=== PATIENT | female | born 1965 | race Caucasian/White ===

== ENCOUNTER 2016-07-11 16:18 | Inpatient (IN) ==
--- NOTE | 2016-07-11 16:48 | Emergency Department Note ---
Disposition Clinical Impression: Pancreatitis Qualifiers: Chronicity: acute Pancreatitis type: unspecified pancreatitis type Acute pancreatitis complication: no infection or necrosis Qualified Code(s): K85.90 - Acute pancreatitis without necrosis or infection, unspecified Disposition: Admitted As Inpatient Condition: Fair Abdominal Pain HPI - General Chief Complaint: ED Abdominal Pain Stated Complaint: abdominal pain Time Seen by Provider: 07/11/16 16:35 Source: patient, EMS Mode of arrival: EMS Limitations: no limitations Nursing Notes Reviewed: Yes Vital Signs Reviewed: Yes - History of Present Illness HPI Narrative: Patient presents to ED via EMS with complaint of abdominal pain. EMS states the return of her shortness of breath and that patient then complained of chest pain when they arrived. Now she denies chest pain and shortness of breath but states she has a headache and abdominal pain. Pain started last night and has been worsening today. Epigastric in location. She describes as a twisting pain that goes to her back. She rates it 10 out of 10. She reports nausea but no vomiting. She has had soft formed bowel movements without diarrhea. No blood noted in her stools. States she tried Gas-X twice today with no improvement in symptoms. She also complains of a 9 out of 10 stabbing headache in the back of her head. Denies any visual disturbances. No lightheadedness or dizziness. No numbness, tingling or weakness. No fever or chills. She has a history of GERD and is on Prevacid. Only abdominal surgery is hiatal hernia. On arrival here she is nontoxic in appearance, afebrile and hemodynamically stable. Pain Scale: 10 - Related Data Home Medications Medication Instructions Recorded Confirmed Gabapentin [Neurontin] 300 mg PO TID 02/14/15 03/31/16 Loratadine [Claritin] 10 mg PO DAILY 02/14/15 03/31/16 Lansoprazole [Prevacid] 30 mg PO DAILY 02/16/15 03/31/16 Vitamin E 400 unit PO DAILY 02/16/15 03/31/16 Ascorbate Calcium [Vitamin C] 500 mg PO DAILY 02/10/16 03/31/16 Alprazolam [Xanax 0.5 MG Tablet] 0.5 mg PO BID PRN 03/20/16 03/31/16 Bupropion HCl [Wellbutrin Xl] 300 mg PO DAILY 03/20/16 03/31/16 Levothyroxine Sodium 75 mcg PO DAILY 03/20/16 03/31/16 Simvastatin [Zocor] 20 mg PO HS 03/20/16 03/31/16 Citalopram Hydrobromide 40 mg PO DAILY 03/31/16 03/31/16 [Citalopram HBr] Previous Rx's Medication Instructions Recorded Acetaminophen [Tylenol] 1,000 mg PO Q6HR PRN #0 tablet 03/20/16 Allergies Allergy/AdvReac Type Severity Reaction Status Date / Time acetaminophen [From Vicodin] AdvReac Irritable Verified 07/11/16 16:20 diazepam [From Valium] AdvReac Irritable Verified 07/11/16 16:20 duloxetine [From Cymbalta] AdvReac Irritable Verified 07/11/16 16:20 hydrocodone [From Vicodin] AdvReac Irritable Verified 07/11/16 16:20 Constitutional: Denies: fever, chills, weakness, weight change Eyes: Denies: eye pain, eye discharge, vision change ENT ED: Denies: ear pain, throat pain, dental pain, hearing loss, epistaxis, congestion, dysphagia Cardiovascular: Denies: chest pain, palpitations, dyspnea on exertion, edema, syncope Respiratory: Denies: cough, dyspnea, wheezes, hemoptysis, stridor Gastrointestinal: Reports: abdominal pain, nausea. Denies: vomiting, diarrhea, constipation, hematemesis, melena, hematochezia Genitourinary: Denies: dysuria, frequency, hematuria, discharge Musculoskeletal: Denies: back pain, neck pain, arthralgia, myalgia Integumentary: Denies: rash, abrasion, lesions Neurological: Reports: headache. Denies: weakness, numbness, paresthesias, confusion, abnormal gait, vertigo Psychiatric: Denies: anxiety, depression, suicidal thoughts, homicidal thoughts , auditory hallucinations, visual hallucinations Endocrine: Denies: fatigue Hematological/Lymphatic: Denies: easy bleeding, easy bruising Allergic/Immunologic: Denies: facial swelling, urticaria Abdominal Pain PMH - Past Medical History Medical history: Reports: arthritis, GERD, thyroid disease Female Surgical History: Reports: Tonsillectomy, other Psychiatric history: Reports: anxiety, depression - Social History Smoking status: Never smoker Alcohol use: Reports: none Drug use: Reports: none Physical Exam - General Limitations: no limitations General appearance: alert, in distress (moaning in pain) - Head Head exam: atraumatic, normocephalic, normal inspection - Eye Eye exam: Present: normal appearance, PERRL, EOMI - ENT ENT exam: normal exam, normal oropharynx, mucous membranes moist - Neck Neck exam: Present: normal inspection, full ROM, trachea midline - Chest Chest inspection: Present: normal inspection, symmetric chest wall rise - Respiratory Respiratory exam: Present: normal lung sounds bilaterally - Cardiovascular Cardiovascular exam: Present: regular rate, normal rhythm, normal heart sounds - Abdominal Exam Abdominal exam: Present: soft, tenderness, normal bowel sounds. Absent: distention, guarding, rebound, rigidity Abdominal tenderness: Present: RUQ, LUQ, epigastrium - Extremities Exam Extremities exam: Present: normal inspection, full ROM. Absent: tenderness, pedal edema - Back Exam Back exam: Present: normal inspection, full ROM. Absent: tenderness - Neurological Exam Neurological exam: Present: alert, oriented X3 - Psychiatric Psychiatric exam: Present: normal affect, normal mood - Skin Skin exam: Present: warm, dry, intact, normal color Course Course Narrative: Patient presents to the ED complaining of 2 days of worsening epigastric abdominal pain and nausea without vomiting. She has tenderness across it of her abdomen exam is somewhat inconsistent. She is in obvious discomfort. She will be given Zofran, Toradol and Pepcid while labs are obtained for further evaluation. Primary concern would be for gastritis versus pancreatitis or less likely cholecystitis. - Reevaluation(s) Reevaluation #1: Lab work was normal with the exception of significantly elevated AST, ALT and lipase, consistent with pancreatitis. CT scan of the abdomen was obtained which did show pancreatitis without pseudocyst, abscess, cholecystitis or dilated ducts. She had significant improvement in her pain and nausea with treatment in the ED. I informed her of all test results and the need for admission for nothing by mouth status and pain control for her pancreatitis. She is in agreement. I spoke to the hospitalist craft demonstrator, Dr. Christensen, who accepted the patient for admission. She continues to rest comfortably at this time. Vital Signs Temperature 99.1 F 07/11/16 16:21 Pulse Rate 77 07/11/16 16:21 Respiratory Rate 18 07/11/16 16:21 Blood Pressure 106/48 07/11/16 16:21 O2 Sat by Pulse Oximetry 100 07/11/16 16:21 Temperature 99.1 F 07/11/16 16:22 Pulse Rate 71 07/11/16 20:30 Respiratory Rate 18 07/11/16 21:37 Blood Pressure 93/54 07/11/16 21:37 O2 Sat by Pulse Oximetry 98 07/11/16 20:30 Oxygen Delivery Oxygen Delivery Room Air Abdominal Pain - Differential Diagnosis Differential Diagnosis: Likely: abdominal pain non-specific, pancreatitis, other (gastritis, cholecystitis) - Medical Records Medical records reviewed: Yes I reviewed the patient's medical records. - Lab Data Lab results reviewed: Yes I reviewed the patient's lab results. Result diagrams: 07/11/16 17:02 07/11/16 17:02 Lab Results 07/11/16 07/11/16 07/11/16 Range/Units 17:02 17:02 17:40 WBC 8.7 (4.3-11.1) K/mcL RBC 4.93 (3.82-4.97) M/mcL Hgb 15.1 (11.5-15.4) g/dL Hct 42.6 (35.3-44.9) % MCV 86.4 (83.0-100.0) fL MCH 30.6 (28.0-33.3) pg MCHC 35.4 (31.6-35.5) g/dL RDW 11.6 (11.5-14.5) % Plt Count 144 (140-400) K/mcL MPV 8.7 L (9.4-12.4) fL Immature Gran % 0.5 (0-4) % Seg Neutrophils % 90.0 % Lymphocytes % 7.8 % Monocytes % 1.6 % Eosinophils % 0.0 % Basophils % 0.1 % Neutrophils # 7.8 (1.6-8.9) K/mcL Lymphocytes # 0.7 (0.6-4.6) K/mcL Monocytes # 0.1 (0.0-1.3) K/mcL Eosinophils # 0.0 (0.0-0.6) K/mcL Basophils # 0.0 (0.0-0.2) K/mcL Sodium 140 (136-145) mEq/L Potassium 3.5 (3.5-4.5) mEq/L Chloride 104 (98-109) mEq/L Carbon Dioxide 20 (19-29) mEq/L BUN 13 (7-20) mg/dL Creatinine 0.97 (0.57-1.11) mg/dL Est GFR ( Amer) > 60 (> 60) Est GFR (Non-Af Amer) > 60 (> 60) BUN/Creatinine Ratio 13 (6-26) Glucose 116 H (70-99) mg/dL Calculated Osmolality 291 (280-300) Calcium 9.9 (8.6-10.8) mg/dL Total Bilirubin 1.7 H (0.2-1.2) mg/dL AST 378 H (5-34) Units/L ALT 161 H (0-55) Units/L Alkaline Phosphatase 112 (38-126) Units/L Serum Total Protein 6.6 (6.0-8.3) g/dL Albumin 3.8 (3.5-5.0) g/dL Globulin 2.8 (2.4-3.5) g/dL Albumin/Globulin Ratio 1.4 (1.1-2.2) Lipase 7290 H (8-78) Units/L Urine Color Yellow (Yellow) Urine Clarity Clear (Clear) Urine pH 7.5 (5.0-8.0) pH Units Ur Specific [place] 1.015 (1.010-1.025) Urine Protein Negative (Neg-Trace) mg/dL Urine Glucose (UA) Normal (Normal) mg/dL Urine Ketones 15 H (Negative) mg/dL Urine Blood Negative (Negative) Urine Nitrite Negative (Negative) Urine Bilirubin Negative (Negative) Urine Urobilinogen 2.0 H (Normal) mg/dL Ur Leukocyte Esterase Negative (Negative) Ur Culture Indicated? NO (NO) - Radiology Data Radiology results reviewed: Yes I reviewed the patient's radiology results. ITS Impressions Abdomen/Pelvis CT 07/11/16 18:49 IMPRESSION: Acute pancreatitis. No evidence of pancreatic duct obstruction or pancreatic necrosis. There is no pseudocyst formation D/ / Caesar Mishra MD / Caesar Mishra MD Interpreting Provider: Caesar Mishra MD - EKG Data EKG attestation: Yes I reviewed and interpreted this EKG. EKG shows normal: sinus rhythm Rate: normal Rhythm: NSR [place]/QRS: normal Interpretation: no acute changes, nonspecific ST-T wave changes
[2016-07-11] MEDS ORDERED: Ketorolac 30 MG/ML VIAL IV ONE (16:49)
[2016-07-11] MEDS ORDERED: Ondansetron 4 MG/2 ML VIAL IV ONE (16:49)
[2016-07-11] MEDS ORDERED: Famotidine 20 MG/2 ML VIAL IVP ONE (16:49)
[2016-07-11] MEDS ORDERED: 0.9 % Sodium Chloride 1,000 ML IVC SCH (17:00)
[2016-07-11 17:13] LABS: Basophils % 0.1 %; Hematocrit 42.6 % (35.3-44.9); Hemoglobin 15.1 g/dL (11.5-15.4); Immature Granulocytes % 0.5 % (0-4); Lymphocytes # 0.7 K/mcL (0.6-4.6); Lymphocytes % 7.8 %; Mean Corpuscular HGB Conc 35.4 g/dL (31.6-35.5); Mean Corpuscular Hemoglobin 30.6 pg (28.0-33.3); Mean Corpuscular Volume 86.4 fL (83.0-100.0); Mean Platelet Volume 8.7 fL (9.4-12.4); Monocytes # 0.1 K/mcL (0.0-1.3); Monocytes % 1.6 %; Neutrophils # 7.8 K/mcL (1.6-8.9); Platelet Count 144 K/mcL (140-400); Red Blood Count 4.93 M/mcL (3.82-4.97); Red Cell Distribution Width 11.6 % (11.5-14.5)
[2016-07-11 17:26] LABS: Alanine Aminotransferase 161 Units/L (0-55); Albumin 3.8 g/dL (3.5-5.0); Albumin/Globulin Ratio 1.4 (1.1-2.2); Alkaline Phosphatase 112 Units/L (38-126); Aspartate Amino Transferase 378 Units/L (5-34); BUN/Creatinine Ratio 13 (6-26); Bilirubin,Total 1.7 mg/dL (0.2-1.2); Blood Urea Nitrogen 13 mg/dL (7-20); Calcium 9.9 mg/dL (8.6-10.8); Carbon Dioxide 20 mEq/L (19-29); Chloride 104 mEq/L (98-109); Globulin 2.8 g/dL (2.4-3.5); Glucose 116 mg/dL (70-99); Osmolality,Calculated 291 (280-300); Potassium 3.5 mEq/L (3.5-4.5); Sodium 140 mEq/L (136-145); Total Protein 6.6 g/dL (6.0-8.3); eGFR For African Americans > 60 (> 60); eGFR For Non-African Americans > 60 (> 60)
[2016-07-11 17:46] LABS: Lipase 7290 Units/L (8-78)
[2016-07-11 17:58] LABS: Bilirubin,Urine Negative (Negative); Blood,Urine Negative (Negative); Clarity,Urine Clear (Clear); Color,Urine Yellow (Yellow); Glucose,Urine (UA) Normal (Normal); Ketones,Urine 15 mg/dL (Negative); Leukocyte Esterase,Urine Negative (Negative); Nitrite,Urine Negative (Negative); PH,Urine 7.5 pH Units (5.0-8.0); Protein,Urine Negative (Neg-Trace); Specific Gravity,Urine 1.015 (1.010-1.025)
[2016-07-11] MEDS ORDERED: Ondansetron 4 MG/2 ML VIAL IVP PRN (21:06)
[2016-07-11] MEDS ORDERED: *HR* Morphine 2 MG/ML SYRINGE IVP PRN (21:06)
[2016-07-11] MEDS ORDERED: Naloxone 0.4 MG/ML INJ IVP PRN ×2 (21:06→21:36)
[2016-07-11] MEDS: *HR* Morphine 2 MG/ML SYRINGE IVP PRN (22:42)
[2016-07-12] MEDS: 0.9 % Sodium Chloride 1,000 ML IVC SCH ×2 (01:19→06:45)
[2016-07-12] MEDS: Ondansetron 4 MG/2 ML VIAL IVP PRN ×2 (06:31→18:09)
[2016-07-12] MEDS: *HR* Morphine 2 MG/ML SYRINGE IVP PRN ×2 (07:55→18:28)
--- NOTE | 2016-07-12 14:54 | Electrocardiograph Report ---
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
--- NOTE | 2016-07-12 14:58 | Internal Med History&Physical ---
Date of Encounter: 07/12/16 Time of Encounter: 14:15 Assessment and Plan (1) Pancreatitis Current visit: Yes Status: Acute Etiology is not obvious. She will be given IV fluids and prn analgesics. Diet will be advanced as tolerated. Qualifiers: Chronicity: acute Pancreatitis type: unspecified pancreatitis type Acute pancreatitis complication: no infection or necrosis Qualified Code(s): K85.90 - Acute pancreatitis without necrosis or infection, unspecified (2) Elevated transaminase level Current visit: Yes Status: Acute We will order hepatitis profile. Alkaline Phosphatase is normal. (3) Hypothyroidism Current visit: Yes Status: Acute TSH was normal at 3.878 on 02/16/2016. Continue present dose Synthroid. Qualifiers: Hypothyroidism type: unspecified Qualified Code(s): E03.9 - Hypothyroidism , unspecified (4) Hyperlipidemia Current visit: Yes Status: Chronic Lipid profile 02/16/2016 showed triglycerides 87 and cholesterol 205. Her total /HDL ratio was 4.4. Qualifiers: Hyperlipidemia type: pure hypercholesterolemia Qualified Code(s): E78.00 - Pure hypercholesterolemia, unspecified; E78.0 - Pure hypercholesterolemia Internal Medicine - H&P: HPI Chief complaint: Abdominal pain Admitted From: Home Plans for Post Hospital Care: Home History of present illness: Ms. Sherman is a 50 year old female who came to emergency stating she had onset of abdominal discomfort the evening of July 10. She describes it as a sensation of "knotting up in the stomach". It persisted through the night and into the following morning. She decided to come to emergency room for further evaluation. She was found to have evidence of pancreatitis and was admitted to [facility] floor for ongoing care needs. She denies previous episodes of pancreatitis. She has not had cholecystectomy but has no known disorders of her liver gallbladder or exocrine pancreas. She does not drink alcohol. She has not had change in medications or change in diet or traveled side her usual locations. She has a history of hiatal hernia with GERD and had paraesophageal hernia repair with fundoplication March 2015. She states she had a follow-up EGD approximately July 2015 which was unremarkable. Past Med Surg Social Fam HX - Past Medical History Medical history: arthritis, GERD, thyroid disease Psychiatric history: anxiety, depression - Past Surgical History Surgical History: , herniorrhaphy - Social History Smoking Status: Never smoker Smokeless Tobacco Status: No Alcohol use: none Drug use: none Internal Medicine - H&P: Meds Gabapentin [Neurontin] 300 mg PO TID 02/14/15 [History] Loratadine [Claritin] 10 mg PO DAILY 02/14/15 [History] Lansoprazole [Prevacid] 30 mg PO DAILY 02/16/15 [History] Vitamin E 400 unit PO DAILY 02/16/15 [History] Ascorbate Calcium [Vitamin C] 500 mg PO DAILY 02/10/16 [History] Acetaminophen [Tylenol] 1,000 mg PO Q6HR PRN #0 tablet 03/20/16 [Rx] Alprazolam [Xanax 0.5 MG Tablet] 0.5 mg PO BID PRN 03/20/16 [History] Bupropion HCl [Wellbutrin Xl] 300 mg PO DAILY 03/20/16 [History] Levothyroxine Sodium 75 mcg PO DAILY 03/20/16 [History] Simvastatin [Zocor] 20 mg PO HS 03/20/16 [History] Citalopram Hydrobromide [Citalopram HBr] 40 mg PO DAILY 03/31/16 [History] Allergies acetaminophen [From Vicodin] Adverse Reaction (Verified 07/11/16 16:20) Irritable diazepam [From Valium] Adverse Reaction (Verified 07/11/16 16:20) Irritable duloxetine [From Cymbalta] Adverse Reaction (Verified 07/11/16 16:20) Irritable hydrocodone [From Vicodin] Adverse Reaction (Verified 07/11/16 16:20) Irritable All Systems PM: A 10-system review of systems was performed and is negative for pertinent findings except as documented above in the HPI. Review of systems: Gen.: She states her weight has decreased approximately 55 pounds in the past 15 months but has been generally stable for the last 3 months. Cardiovascular: She has history of varicose veins with stripping. She denies hypertension LA heart failure angina DVT or pulmonary embolus Respiratory: She is a lifelong nonsmoker and has no known chronic lung disease GI: As per history of present illness : She denies hematuria dysuria or kidney stones Neurologic: She has history of "neuropathy" but denies large distribution strokes or seizures. Endocrine: She has hypothyroidism and has history of hyperlipidemia but no longer takes a statin drug. She denies diabetes. 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 - Constitutional Vitals: Temp Pulse Resp BP Pulse Ox 98.5 F 66 16 94/62 96 07/12/16 11:08 07/12/16 11:08 07/12/16 11:08 07/12/16 11:08 07/12/16 11:08 Exam: Gen.: His well-developed well-nourished female appears in minimal distress at present time. She denies pain or lying at rest. HEENT: Head is atraumatic and normocephalic. Eyes: EOMI. There is no scleral icterus. Mouth: Mucosa is moist. Neck: Supple and nontender. There is no thyromegaly and naphthenic. Heart: Regular without murmurs gallops or ectopics. Lungs: No wheezes or crackles are heard. Abdomen: Bowel sounds are present but diminished. There is mild diffuse tenderness present. Extremities: There is no cyanosis edema or clubbing noted. Dorsalis pedis and posterior tibial pulses are 1-2 over 2 bilaterally. Neurologic: Mental status: She is talkative and a good historian. Cranial nerves: Smile is symmetric. Forehead wrinkles bilaterally. Tongue protrudes midline. EOMI. Motor: There is no pronator drift. Cerebellar: Finger to nose is intact bilaterally. Skin: Warm and dry Internal Med - H&P Results - Labs CBC & Chem 7: 07/11/16 17:02 07/11/16 17:02 - VTE Reasons for not Prescribing Prophylaxis: Treatment not Indicated - Low risk for VTE
[2016-07-12] MEDS: *HR* Enoxaparin 40 MG/0.4 ML SYRINGE SQ SCH (16:36)
[2016-07-12] MEDS ORDERED: Oxymetazoline Nasal SPRAY BOTTLE NS PRN (18:56)
[2016-07-12] MEDS: Gabapentin 300 MG CAPSULE PO SCH (21:36)
[2016-07-13 05:31] LABS: Basophils % 0.5 %; Eosinophils # 0.3 K/mcL (0.0-0.6); Eosinophils % 2.9 %; Hematocrit 35.4 % (35.3-44.9); Hemoglobin 12.1 g/dL (11.5-15.4); Immature Granulocytes % 0.5 % (0-4); Lymphocytes # 2.7 K/mcL (0.6-4.6); Lymphocytes % 30.4 %; Mean Corpuscular HGB Conc 34.2 g/dL (31.6-35.5); Mean Corpuscular Hemoglobin 30.6 pg (28.0-33.3); Mean Corpuscular Volume 89.6 fL (83.0-100.0); Mean Platelet Volume 9.1 fL (9.4-12.4); Monocytes # 0.7 K/mcL (0.0-1.3); Monocytes % 8.5 %; Platelet Count 113 K/mcL (140-400); Red Blood Count 3.95 M/mcL (3.82-4.97); Red Cell Distribution Width 12.1 % (11.5-14.5); Segmented Neutrophils % 57.2 %
[2016-07-13 05:51] LABS: Alanine Aminotransferase 72 Units/L (0-55); Albumin 2.8 g/dL (3.5-5.0); Albumin/Globulin Ratio 1.1 (1.1-2.2); Alkaline Phosphatase 86 Units/L (38-126); Aspartate Amino Transferase 71 Units/L (5-34); BUN/Creatinine Ratio 15 (6-26); Bilirubin,Total 0.7 mg/dL (0.2-1.2); Blood Urea Nitrogen 11 mg/dL (7-20); Calcium 8.2 mg/dL (8.6-10.8); Carbon Dioxide 20 mEq/L (19-29); Chloride 111 mEq/L (98-109); Globulin 2.5 g/dL (2.4-3.5); Glucose 60 mg/dL (70-99); Lipase 297 Units/L (8-78); Osmolality,Calculated 289 (280-300); Potassium 3.9 mEq/L (3.5-4.5); Sodium 141 mEq/L (136-145); Total Protein 5.3 g/dL (6.0-8.3); eGFR For African Americans > 60 (> 60); eGFR For Non-African Americans > 60 (> 60)
[2016-07-13] MEDS: *HR* Enoxaparin 40 MG/0.4 ML SYRINGE SQ SCH (06:50)
[2016-07-13] MEDS: Gabapentin 300 MG CAPSULE PO SCH ×3 (09:15→20:18)
[2016-07-13] MEDS: BuPROPion XL (24 HR) 150 MG TABLET PO SCH (09:15)
--- NOTE | 2016-07-13 12:07 | Internal Med Progress Note ---
Date of Encounter: 07/13/16 Time of Encounter: 12:00 - Assessment and plan (1) Pancreatitis Current Visit: Yes Status: Acute Assessment and plan: July 13. Continue IV fluids but reduce rate. Will advance diet to full liquids. Anticipate discharge home tomorrow if stable. Qualifiers: Chronicity: acute Pancreatitis type: unspecified pancreatitis type Acute pancreatitis complication: no infection or necrosis Qualified Code(s): K85.90 - Acute pancreatitis without necrosis or infection, unspecified (2) Elevated transaminase level Current Visit: Yes Status: Acute Assessment and plan: July 13. Hepatitis profile is pending. LFTs are significantly improved. Continue present treatment (3) Hypothyroidism Current Visit: Yes Status: Acute Assessment and plan: July 13. Continue present dose Synthroid. Qualifiers: Hypothyroidism type: unspecified Qualified Code(s): E03.9 - Hypothyroidism , unspecified (4) Hyperlipidemia Current Visit: Yes Status: Chronic Assessment and plan: July 13. Observe off medication. Qualifiers: Hyperlipidemia type: pure hypercholesterolemia Qualified Code(s): E78.00 - Pure hypercholesterolemia, unspecified; E78.0 - Pure hypercholesterolemia - Subjective Interval history: July 13. She has no new complaints and feels significantly better. - Constitutional Vitals: Temp Pulse Resp BP Pulse Ox 97.8 F 58 16 123/77 99 07/13/16 11:20 07/13/16 11:20 07/13/16 11:20 07/13/16 11:20 07/13/16 11:20 Exam: She is resting comfortably in bed appears in no acute distress. Her affect is bright and cheerful. I reviewed her medications and lab results. Internal Medicine: Result - Labs CBC & Chem 7: 07/13/16 04:41 07/13/16 04:41 Labs: Short CBC 07/13/16 Range/Units 04:41 WBC 8.7 (4.3-11.1) K/mcL Hgb 12.1 D (11.5-15.4) g/dL Hct 35.4 (35.3-44.9) % Plt Count 113 L (140-400) K/mcL Neutrophils # 5.0 (1.6-8.9) K/mcL BMP 07/13/16 04:41 Sodium 141 Potassium 3.9 Chloride 111 H Carbon Dioxide 20 BUN 11 Creatinine 0.72 Glucose 60 L Calcium 8.2 L D Liver Function 07/13/16 Range/Units 04:41 Total Bilirubin 0.7 (0.2-1.2) mg/dL AST 71 H (5-34) Units/L ALT 72 H (0-55) Units/L Alkaline Phosphatase 86 (38-126) Units/L Albumin 2.8 L D (3.5-5.0) g/dL - VTE Reasons for not Prescribing Prophylaxis: Treatment not Indicated - Low risk for VTE Consult Discharge Plan - Plan Referrals: Denise Dao MD [Primary Care Provider] - 1 week
[2016-07-14 05:06] LABS: Basophils % 0.5 %; Eosinophils # 0.3 K/mcL (0.0-0.6); Eosinophils % 4.6 %; Hemoglobin 12.4 g/dL (11.5-15.4); Immature Granulocytes % 0.2 % (0-4); Lymphocytes # 2.3 K/mcL (0.6-4.6); Lymphocytes % 35.1 %; Mean Corpuscular HGB Conc 34.4 g/dL (31.6-35.5); Mean Corpuscular Hemoglobin 30.3 pg (28.0-33.3); Mean Platelet Volume 8.8 fL (9.4-12.4); Monocytes # 0.9 K/mcL (0.0-1.3); Monocytes % 13.5 %; Platelet Count 110 K/mcL (140-400); Red Blood Count 4.09 M/mcL (3.82-4.97); Red Cell Distribution Width 11.9 % (11.5-14.5); Segmented Neutrophils % 46.1 %
[2016-07-14 05:29] LABS: Alanine Aminotransferase 54 Units/L (0-55); Albumin 2.9 g/dL (3.5-5.0); Albumin/Globulin Ratio 1.1 (1.1-2.2); Alkaline Phosphatase 67 Units/L (38-126); Aspartate Amino Transferase 42 Units/L (5-34); BUN/Creatinine Ratio 9 (6-26); Bilirubin,Total 0.5 mg/dL (0.2-1.2); Blood Urea Nitrogen 6 mg/dL (7-20); Calcium 8.4 mg/dL (8.6-10.8); Carbon Dioxide 21 mEq/L (19-29); Chloride 111 mEq/L (98-109); Globulin 2.6 g/dL (2.4-3.5); Glucose 89 mg/dL (70-99); Lipase 190 Units/L (8-78); Osmolality,Calculated 289 (280-300); Potassium 3.8 mEq/L (3.5-4.5); Sodium 141 mEq/L (136-145); Total Protein 5.5 g/dL (6.0-8.3); eGFR For African Americans > 60 (> 60); eGFR For Non-African Americans > 60 (> 60)
[2016-07-14] MEDS: *HR* Enoxaparin 40 MG/0.4 ML SYRINGE SQ SCH (06:43)
[2016-07-14] MEDS: BuPROPion XL (24 HR) 150 MG TABLET PO SCH (08:10)
[2016-07-14] MEDS: Gabapentin 300 MG CAPSULE PO SCH (08:11)
[2016-07-14 08:55] VITALS: BP 125/79
[2016-07-14] MEDS: 0.9 % Sodium Chloride 1,000 ML IVC SCH (09:27)
--- NOTE | 2016-07-14 09:27 | Discharge Summary ---
Date of Encounter: 07/14/16 Time of Encounter: 09:15 - Discharge Diagnosis (1) Pancreatitis Priority: Primary Status: Resolved Qualifiers: Chronicity: acute Pancreatitis type: unspecified pancreatitis type Acute pancreatitis complication: no infection or necrosis Qualified Code(s): K85.90 - Acute pancreatitis without necrosis or infection, unspecified (2) Elevated transaminase level Priority: Secondary Status: Resolved (3) Hypothyroidism Priority: Secondary Status: Chronic Qualifiers: Hypothyroidism type: unspecified Qualified Code(s): E03.9 - Hypothyroidism , unspecified (4) Hyperlipidemia Priority: Secondary Status: Chronic Qualifiers: Hyperlipidemia type: pure hypercholesterolemia Qualified Code(s): E78.00 - Pure hypercholesterolemia, unspecified; E78.0 - Pure hypercholesterolemia - Discharge Medications Home Medications: Gabapentin [Neurontin] 300 mg PO TID 02/14/15 [History] Loratadine [Claritin] 10 mg PO DAILY 02/14/15 [History] Lansoprazole [Prevacid] 30 mg PO DAILY 02/16/15 [History] Vitamin E 400 unit PO DAILY 02/16/15 [History] Ascorbate Calcium [Vitamin C] 500 mg PO DAILY 02/10/16 [History] Acetaminophen [Tylenol] 1,000 mg PO Q6HR PRN #0 tablet 03/20/16 [Rx] Alprazolam [Xanax 0.5 MG Tablet] 0.5 mg PO BID PRN 03/20/16 [History] Bupropion HCl [Wellbutrin Xl] 300 mg PO DAILY 03/20/16 [History] Levothyroxine Sodium 75 mcg PO DAILY 03/20/16 [History] Simvastatin [Zocor] 20 mg PO HS 03/20/16 [History] Citalopram Hydrobromide [Citalopram HBr] 40 mg PO DAILY 03/31/16 [History] Allergies/Adverse Reactions: Allergies acetaminophen [From Vicodin] Adverse Reaction (Verified 07/11/16 16:20) Irritable diazepam [From Valium] Adverse Reaction (Verified 07/11/16 16:20) Irritable duloxetine [From Cymbalta] Adverse Reaction (Verified 07/11/16 16:20) Irritable hydrocodone [From Vicodin] Adverse Reaction (Verified 07/11/16 16:20) Irritable Date of admission: 07/12/16 15:25 Primary care physician: Denise Dao - Patient Status Disposition: Home, Self-Care Condition: Fair Overall status at discharge: patient is back to baseline - Discharge Instructions Follow Up With: Denise Dao MD [Primary Care Provider] - 1 week - Diet and Activity Activity: resume usual activities as tolerated Diet: advance to your usual diet Hospital course: Ms. Sherman is a 50 year old female who came to emergency stating she had onset of abdominal discomfort the evening of July 10. She describes it as a sensation of "knotting up in the stomach". It persisted through the night and into the following morning. She decided to come to emergency room for further evaluation. She was found to have evidence of pancreatitis and was admitted to [facility] for ongoing care needs. Initial orders were written by the emergency physician. I saw her on July 12 and performed a history and physical. She was given IV fluids and prn Analgesics. Lipase decreased rapidly and was 190 on the day of discharge. Her abdominal pain and vomiting completely resolved the day of discharge. There was improvement in her LFTs with AST 42 and ALT 54 day of discharge. Hepatitis profile was ordered but results are pending time of this dictation. The etiology of the pancreatitis was not determined. On July 14 she felt stable for discharge home. She will follow Dr. Dao within 1 week. She will advance diet as tolerated. - Time Spent with Patient Total time spent providing and/or coordinating discharge services: - Constitutional Vitals: Temp Pulse Resp BP Pulse Ox 98.2 F 53 16 125/79 95 07/14/16 08:54 07/14/16 08:54 07/14/16 08:54 07/14/16 08:54 07/14/16 08:54 - VTE Reasons for not Prescribing Prophylaxis: Treatment not Indicated - Low risk for VTE
[2016-07-14 11:20] LABS: Hepatitis A Antibody IgM Nonreactive (Nonreactive); Hepatitis B Core IgM Nonreactive (Nonreactive); Hepatitis B Surface Antigen Nonreactive (Nonreactive); Hepatitis C Virus Antibody Nonreactive (Nonreactive)
== END 2016-07-14 11:00 | disposition home or self-care (01) | DRG 282 ==
LOC: EMEROOPIK 16:18 → INPPIK 16:18
PROVIDERS: ADMIT Internal Medicine; ATTEND Internal Medicine